=== PATIENT | female | born 1980 ===

== ENCOUNTER 2022-01-26 19:09 | Emergency (ER) | payer OTHER ==
[2022-01-26 21:56] VITALS: BP 143/94
--- NOTE | 2022-01-26 22:25 | Emergency Department Report ---
ED General Adult HPI - General Chief complaint: Medical Clearance Stated complaint: LOW BLOOD COUNT/BLOOD TRANSFUSION Time Seen by Provider: 01/26/22 21:58 Source: patient Mode of arrival: Ambulatory Limitations: No Limitations - History of Present Illness Initial comments: 41-year-old female the past medical history of chronic iron deficiency anemia pr esents to the hospital with complaints of low hemoglobin. Patient recently got insurance and saw a new primary care doctor this week. She received a call that her hemoglobin was 6.2 and she need to go to the ER for blood transfusion. Patient denies previous history of blood transfusion. She also denies shortness of breath, fatigue, lightheadedness, dizziness, or near syncope patient states she works out frequently and does not have any change in her exercise tolerance. Even though patient has not been seeing a doctor she has been taking liquid iron intermittently, vitamins daily, and trying to supplement with iron in her diet. Patient did have a menstrual cycle last week which is typically heavy for the first 3 days and is currently tapering off to mild spotting. She denies melena or hematochezia. She denies history of iron infusion Severity scale (0 -10): 0 - Related Data Previous Rx's Medication Instructions Recorded Last Taken Type Ferrous Sulfate [Ferrous Sulfate 300 mg PO DAILY 30 Days ml 01/26/22 Unknown Rx Oral Liq 300 Mg/5 Ml] Allergies Allergy/AdvReac Type Severity Reaction Status Date / Time No Known Allergies Allergy Verified 01/26/22 20:21 ED Review of Systems ROS: Stated complaint: LOW BLOOD COUNT/BLOOD TRANSFUSION Other details as noted in HPI Comment: All other systems reviewed and negative ED Past Medical Hx - Past Medical History Previous Medical History?: No - Surgical History Past Surgical History?: No - Social History Smoking Status: Never Smoker Substance Use Type: None - Medications Home Medications: Home Medications Medication Instructions Recorded Confirmed Last Taken Type Ferrous Sulfate [Ferrous Sulfate 300 mg PO DAILY 30 Days ml 01/26/22 Unknown Rx Oral Liq 300 Mg/5 Ml] ED Physical Exam - General Limitations: No Limitations - Other Other exam information: General: No acute distress Head: Atraumatic Eyes: normal appearance ENT: Moist mucous membranes Neck: Normal appearance, no midline tenderness Chest: Clear to auscultation bilaterally CV: Regular rate and rhythm Abdomen: Soft, normal bowel sounds, nontender, nondistended, no rebound or guarding Back: Normal inspection Extremity: Normal inspection, full range of motion Neuro: Alert O x 3, no facial asymmetry, speech clear, no gross motor sensory deficit Psych: Appropriate behavior Skin: No rash ED Course Vital Signs 01/26/22 01/26/22 01/26/22 20:18 21:54 21:56 Temperature 98.2 F 98.3 F Pulse Rate 98 H 96 H Respiratory 18 18 Rate Blood Pressure 159/84 143/94 [Left] O2 Sat by Pulse 99 100 100 Oximetry - Reevaluation(s) Reevaluation #1: 01/26/22 22:25 Initial CBC clotted. Awaiting redraw. At this time patient is unsure if she wants a blood transfusion given that she is asymptomatic ED Medical Decision Making - Lab Data Result diagrams: 01/26/22 22:36 Lab Results 01/26/22 01/26/22 01/26/22 Range/Units 22:36 22:36 22:36 WBC 5.7 (4.5-11.0) K/mm3 RBC 3.43 L (3.65-5.03) M/mm3 Hgb 6.8 L (10.1-14.3) gm/dl Hct 22.3 L (30.3-42.9) % MCV 65 L (79-97) fl MCH 20 L (28-32) pg MCHC 31 (30-34) % RDW 19.7 H (13.2-15.2) % Plt Count 210 (140-440) K/mm3 Lymph % (Auto) 29.5 (13.4-35.0) % Craig % (Auto) 12.8 H (0.0-7.3) % Eos % (Auto) 4.2 (0.0-4.3) % Baso % (Auto) 1.5 (0.0-1.8) % Lymph # (Auto) 1.7 (1.2-5.4) K/mm3 Craig # (Auto) 0.7 (0.0-0.8) K/mm3 Eos # (Auto) 0.2 (0.0-0.4) K/mm3 Baso # (Auto) 0.1 (0.0-0.1) K/mm3 Seg Neutrophils % 52.0 (40.0-70.0) % Seg Neutrophils # 3.0 (1.8-7.7) K/mm3 HCG, Qual Negative (Negative) Blood Type A POSITIVE - Medical Decision Making 41-year-old female who is currently asymptomatic with a history of iron def iciency anemia who was sent to the ER by her PMD for a blood transfusion for hemoglobin of 6.2. HGB is 6.8 here in the ed. Through shared decision making patient has decided not to receive blood transfusion at this time due to her lack of significant symptoms and no change in her exercise tolerance. Patient will be provided liquid iron to take daily, provided a copy of her labs from today, and encouraged to discuss further treatment and monitoring with her primary care doctor as well as hematology referral. Patient instructed to return to the hospital if she does have worsening exercise tolerance, shortness of breath, fatigue, dizziness, or near syncope for repeat evaluation to determine if blood transfusion is indicated at that time due to further drop in hemoglobin Critical Care Time: No Critical care attestation.: If time is entered above; I have spent that time in minutes in the direct care of this critically ill patient, excluding procedure time. ED Disposition Clinical Impression: Chronic iron deficiency anemia Disposition: 01 HOME / SELF CARE / HOMELESS Is pt being admited?: No Does the pt Need Aspirin: No Condition: Stable Instructions: Preventing Iron Deficiency Anemia, Adult Additional Instructions: Take the medication as prescribed. Follow-up with your doctor or doctor/clinic provided. Return if symptoms worsen as indicated by your discharge instructions. Prescriptions: Ferrous Sulfate [Ferrous Sulfate Oral Liq 300 Mg/5 Ml] 300 mg PO DAILY 30 Days ml Referrals: TEODORO WILLIS MD [Referring] - 3-5 Days ([employer]) your, primary care doctor [Other] - 3-5 Days Time of Disposition: 23:24
[2022-01-26 22:53] LABS: Basophils # (Auto) 0.1 K/mm3 (0.0-0.1); Basophils % (Auto) 1.5 % (0.0-1.8); Eosinophils # (Auto) 0.2 K/mm3 (0.0-0.4); Eosinophils % (Auto) 4.2 % (0.0-4.3); Hematocrit 22.3 % (30.3-42.9); Hemoglobin 6.8 gm/dl (10.1-14.3); Lymphocytes # (Auto) 1.7 K/mm3 (1.2-5.4); Lymphocytes % (Auto) 29.5 % (13.4-35.0); Mean Corpuscular HGB Conc 31 % (30-34); Monocytes # (Auto) 0.7 K/mm3 (0.0-0.8); Monocytes % (Auto) 12.8 % (0.0-7.3); Platelet Count 210 K/mm3 (140-440); Red Blood Count 3.43 M/mm3 (3.65-5.03); Red Cell Distribution Width 19.7 % (13.2-15.2)
[2022-01-26 23:06] LABS: Mean Corpuscular Volume 65 fl (79-97)
== END 2022-01-27 00:07 | disposition home or self-care (01) ==
LOC: ED 19:09
DX: D50.9 Iron deficiency anemia, unspecified (principal); G89.29 Other chronic pain; Z79.899 Other long term (current) drug therapy
CPT/HCPCS: 36415; 84703; 85025; 86850; 86900; 86901; 99283